=== PATIENT | female | born 1980 | race Caucasian/White ===

== ENCOUNTER → 2020-03-15 09:51 | Outpatient (CLI) | payer BC, SELFPAY ==
--- NOTE | ~2020-03-15 | US_ITS ---
EXAMINATION: US abdomen complete DATE: 03/15/2020 10:12 INDICATION: Right upper quadrant and epigastric pain TECHNIQUE: Multiple grayscale and Doppler ultrasound images of the abdomen were obtained. COMPARISON: None available FINDINGS: The head and and body of the pancreas are normal. The pancreatic tail is obscured by bowel gas. The liver is normal with normal echogenicity and echotexture. No surface nodularity. Normal hepa topetal flow in the main portal vein. The gallbladder is normal with no abnormal wall thickening, per icholecystic fluid or stones. The normal common bile duct measures 4 mm. There was no sonographic Mur phy sign. The visualized portions of the aorta are normal. The inferior vena cava is not visualized d ue to overlying bowel gas. The right kidney measures 11.5 x 5.5 x 5.3 cm. The left kidney measures 10.6 x 5 x 5.5 cm. The kidney s demonstrate normal parenchymal echogenicity. There is no hydronephrosis. The spleen is normal in ap pearance and measures 10.4 cm. IMPRESSION: 1. No sonographic correlate for the patient's symptoms. Reviewed, dictated and finalized at location A.
== END ==
PROVIDERS: PCP Internal Medicine Endocrinology, Diabetes & Metabolism; Visit Provider Internal Medicine Endocrinology, Diabetes & Metabolism
DX: R10.9 Unspecified abdominal pain (principal)
CPT/HCPCS: 76700

== ENCOUNTER 2020-04-23 01:45 | Observation (INO) | payer BC, SELFPAY ==
[2020-04-23] VITALS (13 sets, daily range): BP systolic 90–139; BP diastolic 41–66; PULSE 62–90; RESP 12–21; TEMP 36.3–37.2; O2SAT 68–100; BMI 27.8
--- NOTE | ~2020-04-23 | CT_ITS ---
EXAMINATION: CT abdomen pelvis w con EXAM DATE: 04/23/2020 03:21 INDICATION: Right lower quadrant pain. TECHNIQUE: Spiral CT of the abdomen and pelvis was performed following intravenous injection of 100 m L Omnipaque 350. Axial, coronal and sagittal images were reviewed. The dose-length product (DLP) fo r this examination was 705.65 mGy-cm. The exposure was tailored according to patient size (auto mA e xposure control), and iterative reconstruction (ASIR) was used as additional dose reduction technique . There is no prior study for comparison. FINDINGS: The liver, spleen, adrenal glands and pancreas are unremarkable. Gallbladder is unremarkab le. No biliary obstruction. Portal and splenic veins are patent. Kidneys enhance symmetrically. T here is no hydronephrosis. The uterus is unremarkable. The bladder is unremarkable. There is no retroperitoneal or pelvic lymphadenopathy. Appendix is significantly dilated, appears obstructed, fluid-filled with moderate amount of adjacent inflammation. No abscess or perforation. Acute uncomplicated appendicitis. The stomach and small bow el are unremarkable. There is expected amount of colonic stool. No free intraperitoneal gas. The heart is normal in size. There are no pericardial or pleural effusions. The lung bases are unremar kable. The bones are unremarkable. IMPRESSION: 1. Acute appendicitis. Reviewed, dictated and finalized at location A. IMPRESSION: 1. Acute appendicitis.
[2020-04-23 02:39] LABS: Basophils Percent Auto 0.3 % (0.2-1.2); Eosinophils Absolute Auto 0.2 K/mm3 (0-0.3); Eosinophils Percent Auto 1.4 % (0-4.4); Hematocrit 42.2 % (37.0-47.0); Hemoglobin 14.2 g/dL (12.0-15.0); Immature Granulocyte Absolute 0.04 K/mm3 (0.00-0.031); Immature Granulocyte Percent A 0.3 % (0-0.5); Lymphocytes Absolute Auto 2.12 K/mm3 (0.9-3.2); Lymphocytes Percent Auto 16.6 % (18.3-44.2); Mean Corpuscular HGB Conc 33.6 g/dl (32-36); Mean Corpuscular Hemoglobin 29.6 pg (26-34); Mean Corpuscular Volume 88.1 fl (80-100); Mean Platelet Volume 11.2 fl (7.4-10.4); Monocytes Absolute Auto 0.6 K/mm3 (0.1-0.6); Monocytes Percent Auto 4.8 % (2.6-8.5); Neutrophils Absolute Auto 9.8 K/mm3 (1.3-6.7); Neutrophils Percent Auto 76.6 % (45.5-73.1); Platelet Count Result 221 k/mm3 (150-375); Red Blood Count 4.79 M/mm3 (4.2-5.4); Red Cell Distribution Width 11.9 % (11.5-14.5); White Blood Count 12.8 K/mm3 (4.5-10.0)
[2020-04-23] MEDS: MORPHINE SULFATE (*CRX) 2 MG/ML INJ IV PUSH (02:39)
[2020-04-23] MEDS: ONDANSETRON INJ 4 MG/2 ML VIAL IV PUSH ×4 (02:39→15:52)
[2020-04-23 02:46] LABS: Add Urine Microscopic? YES; Appearance Urine Clear (Clear); Bacteria Urine Trace /hpf; Bilirubin Urine Negative (Negative); Blood Urine 3+ (Negative); Color Urine Straw (Yellow); Glucose Urine UA Negative (Negative); Ketones Urine Negative (Negative); Leukocyte Esterase Ur Negative LEU/UL (Negative); Mucus Urine Rare /lpf; Nitrate Urine Negative (Negative); Protein Urine Negative (Negative); RBC Urine >75 /hpf (0-2); Specific Grav Ur 1.017 (1.001-1.035); Squamous Epithelial Cell Urine Few /hpf (Few); Urobilinogen Urine Negative mg/dL (<2.0); WBC Urine 0-3 /hpf
[2020-04-23 02:54] LABS: Alanine Aminotransferase 26 U/L (4-35); Albumin Level 4.3 g/dL (3.5-5.1); Alkaline Phosphatase 97 U/L (38-126); Anion Gap 9 mmol/L (8-16); Aspartate Amino Transferase 29 U/L (14-36); Bilirubin,Total 0.5 mg/dL (0.2-1.3); Blood Urea Nitrogen 15 mg/dL (7-17); Calcium 9.6 mg/dL (8.4-10.2); Carbon Dioxide 30 mmol/L (22-30); Chloride 101 mmol/L (98-107); Estimated CRCL calculation 91 ml/min; Estimated Glomerular Filt Rate > 60; Glucose 168 mg/dL (65-105); Lipase 442 U/L (23-300); Potassium 3.9 mmol/L (3.4-5.0); Sodium 140 mmol/L (137-145)
--- NOTE | 2020-04-23 03:53 | ED.ABDPAIN ---
HPI - Abdominal Pain General Chief Complaint: Abdominal Pain Stated Complaint: abd pain Time Seen by Provider: 04/23/20 02:03 History of Present Illness HPI narrative: Patient is a 39-year-old female who presents ER with abdominal pain beginning this evening. Began upper abdomen is starting down to her lower abdomen. Is cramping in nature. Associate with diarrhea x2. No nausea or vomiting. She without fevers or chills. Denies urinary symptoms. Symptoms worse with movement. Related Data Home Medications Medication Instructions Recorded Confirmed semaglutide [Ozempic] 0.25 mg SUBCUT WEEKLY 04/23/20 04/23/20 Allergies Allergy/AdvReac Type Severity Reaction Status Date / Time No Known Allergies Allergy Unverified 04/23/20 02:20 Review of Systems Review of Systems: All systems reviewed & are unremarkable except as noted in HPI and below Constitutional: Constitutional: Denies chills, Denies fever(s) and Denies weakness ENT: Denies nasal congestion and Denies sore throat Cardiovascular: Cardiovascular: Denies chest pain and Denies radiating jaw, neck or arm pain Gastrointestinal: Gastrointestinal: Reports abdominal pain, Reports diarrhea, Denies nausea and Denies vomiting Genitourinary: Genitourinary: Denies nocturia, Denies dysuria and Denies flank pain PMFSH Family History Family History (Updated 04/23/20 @ 05:36 by Ching Campuzano RN) Sibling BRYANT (latent autoimmune diabetes in adults), managed as type 2 Father Heart attack Mother Meniere's disease Other Family history of cardiovascular disease Social History Social History Smoking packs per day: 0.5 Smoking cigarettes per day: 10.0 Years smoked: 20 Smoking pack-years: 10.00 Smoking status: Former smoker Tobacco type: cigarettes Smoking end date: 11/23/19 Alcohol intake: current Substance use: never 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 HEAD: Normocephalic, atraumatic. CHEST: Clear to auscultation. No respiratory distress. HEART: Regular rate and rhythm. Normal peripheral pulses. ABDOMEN: Soft, tender palpation right lower quadrant with guarding, nondistended. EXTREMITIES: Normal range of motion. No edema. SKIN: Warm, dry, no rash. NEURO: Alert and oriented x3. PSYCH: Normal mood and affect. Course Course Emergency Course: Discussed with surgery, will admit, zosyn ordered, pt stable. Vital Signs Vital signs: Vital Signs Temperature 97.3 F L 04/23/20 01:47 Pulse Rate 80 04/23/20 01:47 Respiratory Rate 20 04/23/20 01:47 Blood Pressure 139/44 L 04/23/20 01:47 Pulse Oximetry 98 04/23/20 01:47 Temperature 97.3 F L 04/23/20 01:47 Pulse Rate 75 04/23/20 04:57 Respiratory Rate 18 04/23/20 04:57 Blood Pressure 119/58 L 04/23/20 04:57 Pulse Oximetry 99 04/23/20 04:57 MDM - Abdominal Pain Lab Data Result diagrams: 04/23/20 02:27 04/23/20 02:27 Labs: Lab Results 04/23/20 04/23/20 04/23/20 Range/Units 02:27 02:27 02:27 WBC 12.8 H (4.5-10.0) K/mm3 RBC 4.79 (4.2-5.4) M/mm3 Hgb 14.2 (12.0-15.0) g/dL Hct 42.2 (37.0-47.0) % MCV 88.1 (80-100) fl MCH 29.6 (26-34) pg MCHC 33.6 (32-36) g/dl RDW 11.9 (11.5-14.5) % Plt Count 221 (150-375) k/mm3 MPV 11.2 H (7.4-10.4) fl Immature Gran % (Auto) 0.3 (0-0.5) % Neut % (Auto) 76.6 H (45.5-73.1) % Lymph % (Auto) 16.6 L (18.3-44.2) % [place] % (Auto) 4.8 (2.6-8.5) % Eos % (Auto) 1.4 (0-4.4) % Baso % (Auto) 0.3 (0.2-1.2) % Lymph # (Auto) 2.12 (0.9-3.2) K/mm3 [place] # (Auto) 0.6 (0.1-0.6) K/mm3 Eos # (Auto) 0.2 (0-0.3) K/mm3 Baso # (Auto) 0.0 (0.0-0.1) K/mm3 Abs Immat Gran (auto)
[2020-04-23] MEDS: MORPHINE SULFATE (*CRX) 4 MG/ML INJ IV PUSH ×4 (04:08→10:28)
--- NOTE | 2020-04-23 05:13 | ADMGEN ---
This patient, Missy Ricks, was admitted to Medical Room 261-01. Patient/family oriented to hospital policies and general routines including ID bracelet, bed and alarms, visiting hours, pain management, procedures, bathroom and other care routines, personal items, smoking policy, room service/diet, and visiting hours. Valuables list has been completed. Information on how to activate the Rapid Response Team has been discussed. Patient/Family are encouraged to report perceived risks to care and to ask questions if they do not understand what they are told or what they should do.
[2020-04-23] MEDS: SODIUM CHLORIDE 0.9% IV 1,000 ML 125 ML IV CONT ×2 (05:48→18:35)
--- NOTE | 2020-04-23 08:06 | PM.IMHP ---
H&P: HPI History of Present Illness Date/Time: 04/23/20 08:06 Chief complaint: appendicitis Narrative: Missy Rikcs is a 39 year old female who states that she began having upper mid abdominal pain last night approximately 8-9 p.m.. By 11 p.m. she was very uncomfortable and and try to lay down after taking some Pepto-Bismol. This did not seem to settle her stomach so she eventually came to the hospital. Workup in the [facility] emergency room revealed acute appendicitis with an appendicolith. (See CT scan report). Patient was started on Pipracil on IV made NPO and given IV fluids. She is willing to proceed with a laparoscopic appendectomy possible open. Review of Systems Constitutional: Constitutional: Reports no additional constitutional complaints, Reports fatigue and Denies malaise Eyes: Eyes: Denies change in vision and Denies loss of vision ENT: Reports Normal hearing present, Denies change in voice, Denies dizziness, Denies hoarseness and Denies sore throat Cardiovascular: Cardiovascular: Denies chest pain, Denies leg edema and Denies dyspnea Respiratory: Respiratory: Denies cough, Denies dyspnea and Denies wheezing Gastrointestinal: Gastrointestinal: Reports abdominal pain ( Mainly across mid abdomen radiating toward the right), Denies hematochezia, Reports change in bowel habits ( since beginning to take Trulisity she has been having bowel movement e), Denies heartburn and Reports diarrhea ( 2 loose stools last night while she was having the abdominal pain in the ) Comments: since beginning to take Trulisity she has been having bowel movement Every other day rather than every day. she had 2 loose stools last night while she was having the abdominal pain in the evening. Prior to feeling poorly last night she was not having any significant abdominal pain. Genitourinary: Genitourinary: Denies urinary frequency and Denies urinary incontinence Comments: History of occasional urinary tract infections none recently. Neurologic: Reports Normal hearing present, Denies confusion, Denies dizziness, Denies loss of vision, Denies memory loss and Denies seizure-like activity Psychiatric: Psychiatric: Denies confusion, Denies depression and Denies memory loss Endocrine: Endocrine: Denies cold intolerance and Reports other ( Known type 2 diabetes on Ozempic) Comments: patient sees an park guard and saw her recently in February. She did have some upper abdominal discomfort when she originally try toes up pick and then switched to [employer]. Tree list the did not seem to suppress her appetite as well did control her blood sugars well. Two weeks ago she started trying to switch back to low-dose Ozempic. Hematologic/Lymphatic: Hematologic/Lymphatic: Denies easy bleeding and Denies easy bruising Allergic/Immunologic: Allergic/Immunologic: Denies wheezing PMFSH Past Medical History Medical History Anxiety Psoriasis Type 2 diabetes mellitus without complication Surgical History Surgical History No history of previous surgery Family History Family History Sibling BRYANT (latent autoimmune diabetes in adults), managed as type 2 Father Heart attack Mother Meniere's disease Other Family history of cardiovascular disease Social History Social History Smoking packs per day: 0.5 Smoking cigarettes per day: 10.0 Years smoked: 20 Smoking pack-years: 10.00 Smoking status: Former smoker Tobacco type: cigarettes Smoking end date: 11/23/19 Alcohol intake: current Substance use: never 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
--- NOTE | 2020-04-23 09:55 | PC.NURSE ---
surgical SBAR faxed to preop at [phone]
--- NOTE | 2020-04-23 10:54 | WPDHPUPDATE1 ---
History and Physical Update Update Date/Time: 04/23/20 10:54 History and Physical has been reviewed, including an updated exam of the patient. There are NO changes in the patient's condition. Risks, benefits, and alternatives have been discussed and questions answered. Patient agrees to proceed with procedure.
--- NOTE | 2020-04-23 11:08 | PC.NURSE ---
pt to OR via bed, reviewed plan of care with pt and
[2020-04-23] MEDS: LACTATED RINGERS 1,000 ML 30 ML IV CONT ×3 (11:33→15:15)
[2020-04-23] MEDS: BUPIVACAINE/EPINEPHRINE 0.5% 10 ML VIAL 30 ML INFILTRATE (13:58)
[2020-04-23] MEDS: fentaNYL CITRATE INJ (*CRX) 100 MCG/2 ML VIAL 25 MCG IV PUSH ×2 (15:12→15:17)
--- NOTE | 2020-04-23 15:47 | PC.NURSE ---
pt arrived back from surgery via bed, resting comfortably, assessment as noted in flowsheet
--- NOTE | 2020-04-23 16:13 | PM.PROC ---
Procedure Note - Detailed Date of procedure: 04/23/20 Pre-op diagnosis: appendicitis Acute uncomplicated gangrenous appendicitis Post-op diagnosis: same Procedure performed: Laparoscopic Appendectomy Description of procedure: The patient was seen again in the Holding Room. The risks, benefits, complications, treatment options, and expected outcomes were discussed with the patient and/or family. The possibilities of reaction to medication, pulmonary aspiration, perforation of viscus, bleeding, recurrent infection, finding a normal appendix, the need for additional procedures, failure to diagnose a condition, and creating a complication requiring transfusion or operation were discussed. There was concurrence with the proposed plan and informed consent was obtained. The site of surgery was properly noted/marked. The patient was taken to Operating Room, and a time out was preformed which identified this as the proper patient, and the procedure verified as laparoscopic appendectomy, possible open. The patient was placed in the supine position and general anesthesia was induced, along with placement of orogastric tube, SCD hose, and a Daniel catheter. The abdomen was prepped and draped in a sterile fashion. A 5 mm umbilical incision was made and the peritoneal cavity was accessed using the Veress needle technique. Once the abdomen was insufflated to 14 mmHg pressure a 5 mm XL trocar over the 0? 5 mm scope was carefully twisted into the abdomen via the umbilicus. The pneumoperitoneum was then established to steady pressure of 14 mm Hg. A 12 mm laparoscopic port was placed through a transverse suprapubic incision under direct vision with the laparoscope. An additional 5 mm cannula was then placed in the left lower quadrant of the abdomen at a level half way between the umbilicus and pubic symphysis under direct vision. A careful evaluation of the entire abdomen was carried out no inguinal hernias were identified. The adnexal structures uterus and both ovaries along with tubes appeared to be normal. The patient was placed in Trendelenburg and left lateral decubitus position. The small intestines were retracted in the cephalad and left lateral direction away from the pelvis and right lower quadrant. The patient was found to have an enlarged and inflamed appendix that was extending into the right side of the upper pelvis. There was no evidence of perforation. The appendix was carefully dissected. Once it was free a 45 mm ethicon endogastroentestinal stapler with a vascular load was placed across the mesoappendix. This was fired and hemostasis was checked along the staple line. Because we did not staple E entire mesoappendix it appeared that there was some bleeding so I used a [place] for dissect her on Bovie cautery and grass the bleeder holding it tightly cauterized this twice. This stopped the bleeding. The suction whirley operator was used to suction away any blood that had spilled and there was estimated to be about 35 cc of loss at that time. After that hemostasis appeared to be adequate. Then another cartridge containing a vascular load applied and the stapler then placed right to the base of the appendix. This was also fired and bleeding was checked. The appendix was then divided at its base using the same 45 mm stapler with a 3.5 mm bowel wall load. Minimal appendiceal stump was left in place. There was no evidence of bleeding, leakage, or complication after division of the appendix at its junction with the cecum.. The appendix was then placed in an endobag which had been brought through the 12 mm suprapubic port site. The appendix and the bag were then extracted through this larger port site in the suprapubic position. The suprapubic port site was closed using a #1 Polysorb suture passed with a Abiodun-Roy cone and needle suture passer at the level of the fascia. The trocar site skin wounds were closed using 4-0 undyed Monocryl and surgical glue. Instrument, sponge,
[2020-04-23] MEDS: SENNA/DOCUSATE SODIUM TABLET 2 TAB PO (20:39)
[2020-04-23] MEDS: HYDROcodone/acetaminophen (*CRX) 5-325 MG TABLET 1 TAB PO (20:46)
[2020-04-24] MEDS: HYDROcodone/acetaminophen (*CRX) 5-325 MG TABLET 1 TAB PO (00:49)
[2020-04-24 01:27] VITALS: BP 103/51; PULSE 86; RESP 20; TEMP 36.1; O2SAT 99
[2020-04-24] MEDS: SODIUM CHLORIDE 0.9% IV 1,000 ML 125 ML IV CONT (02:28)
[2020-04-24 05:27] VITALS: BP 104/55; PULSE 75; RESP 20; TEMP 37.2; O2SAT 98
[2020-04-24] MEDS: HYDROcodone/acetaminophen (*CRX) 7.5-325 MG TABLET 1 TAB PO ×3 (05:40→13:36)
[2020-04-24 05:57] LABS: Mean Corpuscular HGB Conc 33.3 g/dl (32-36); Mean Corpuscular Hemoglobin 29.6 pg (26-34); Mean Corpuscular Volume 88.9 fl (80-100); Mean Platelet Volume 11.5 fl (7.4-10.4); Platelet Count Result 178 k/mm3 (150-375); Red Blood Count 3.71 M/mm3 (4.2-5.4); Red Cell Distribution Width 12.2 % (11.5-14.5); White Blood Count 11.9 K/mm3 (4.5-10.0)
[2020-04-24 06:28] LABS: Anion Gap 8 mmol/L (8-16); Blood Urea Nitrogen 9 mg/dL (7-17); Calcium 8.1 mg/dL (8.4-10.2); Carbon Dioxide 26 mmol/L (22-30); Chloride 104 mmol/L (98-107); Estimated CRCL calculation 123 ml/min; Estimated Glomerular Filt Rate > 60; Glucose 111 mg/dL (65-105); Lipase 79 U/L (23-300); Potassium 3.7 mmol/L (3.4-5.0); Sodium 138 mmol/L (137-145)
[2020-04-24 10:00] VITALS: BP 96/56; PULSE 61; RESP 14; TEMP 36.1; O2SAT 100
--- NOTE | 2020-04-24 11:01 | WPDANESPN ---
Anes - Prog Note Post-Op Date/Time: 04/24/20 11:01 Cardiovascular status: normal Respiratory status: normal Airway patency: baseline Mental status: baseline Post-Op hydration status: normal Vital Signs: Last Vital Signs Temp 36.1 C L 04/24/20 10:00 Pulse 61 04/24/20 10:00 Resp 14 04/24/20 10:00 BP 96/56 L 04/24/20 10:00 Pulse Ox 100 04/24/20 10:00 Pain Score (VAS): 0 I/O: Intake & Output 04/23/20 04/24/20 04/24/20 23:59 07:59 15:59 Intake Total 1000 1540 240 Output Total 800 Balance 1000 740 240 Laboratory Tests 04/24/20 05:32 04/24/20 05:32 04/24/20 04/24/20 05:32 05:32 WBC 11.9 H RBC 3.71 L Hgb 11.0 L D Hct 33.0 L MCV 88.9 MCH 29.6 MCHC 33.3 RDW 12.2 Plt Count 178 MPV 11.5 H Sodium 138 Potassium 3.7 Chloride 104 Carbon Dioxide 26 Anion Gap 8 BUN 9 D Creatinine 0.50 L Estim Creat Clear Calc 123 Estimated GFR > 60 Glucose 111 H Calcium 8.1 L Lipase 79 Post-procedural complaints: none Patient Feedback: Patient satisfied with anesthetic care.
--- NOTE | 2020-04-24 12:48 | PM.DS ---
DS: Admitting Diagnosis Admitting Diagnosis Admitting Diagnosis: Acute uncomplicated appendicitis 2. non insulin-dependent diabetes mellitus 3. overweight status BMI 28 DS: Discharge Diagnosis Discharge Diagnosis (1) Type 2 diabetes mellitus without complication: Onset Date: ~2018 Qualifiers: Diabetes mellitus terminal operator insulin use: without fdc use Qualified Code(s): E11.9 - Type 2 diabetes mellitus without complications Code(s): E11.9 - Type 2 diabetes mellitus without complications Status: Acute Assessment and Plan: patient will resume her was then pick at home. She will follow her blood sugars as needed. She will call her under radiology physician if there are any problems with her diabetes in the (2) Acute appendicitis: Onset Date: ~04/23/20 Code(s): K35.80 - Unspecified acute appendicitis Status: Acute Assessment and Plan: patient had an appendectomy yesterday. White blood cell count has come down appropriately. She has not required any more antibiotics. Pain is controlled with oral pain medications at this time and patient is tolerating a diet. She knows she should take a laxative if she has not have a bowel movement by tomorrow evening. (3) BMI 28.0-28.9,adult: Onset Date: Unknown Code(s): Z68.28 - Body mass index [BMI] 28.0-28.9, adult Status: Acute Assessment and Plan: Courage patient to follow a low-fat diabetic diet and keep it saw for the 1st few days once going home. DS: Summary Hospital Course Reason for hospitalization: Acute uncomplicated appendicitis Hospital Course: patient had uneventful hospital course. She was admitted [facility] upon the day of presentation. IV antibiotics were started. Surgical intervention was recommended. She underwent a fairly uneventful laparoscopic appendectomy. She was complain of slight burning with urination on the morning of discharge however, she had a Daniel catheter placed the time of surgery so I suspect that this will resolve. She knows if it does not she will need to have a urinalysis and we will order it upon discharge or it if she calls the next few days. Status at Discharge Cognitive/behavioral status at discharge: Back to normal baseline Functional status at discharge: independent ambulation Overall status at discharge: patient is not back to baseline ( still is moving slowly secondary to incisional pain.) Time Spent with Patient Time attestation: Total time spent providing and/or coordinating discharge services: Time spent: Less than 30 minutes Exam Const: General: cooperative, no acute distress, alert and awake Orientation/consciousness: patient oriented x3 HENMT: Mouth: Yes moist mucous membranes Neck: Neck: normal visual inspection Chest: Chest palpation & inspection: normal inspection of the chest Resp: Effort & Inspection: normal respiratory effort Auscultation: clear to auscultation bilaterally Cardio: Jugular venous distension: no JVD Rate: regular rate Rhythm: regular rhythm GI: Inspection: obesity GI Palp: Yes abdominal tenderness ( mild near incisions), Yes Soft to palpation and Yes Other GI palpation findings present ( incisions clean and dry without significant erythema) Auscultation: normal bowel sounds Rectal Exam: deferred Neuro: General: patient oriented x3 and moves all extremities Speech: normal speech Extrem: General: normal exam except as noted Psych: Mental Status: mental status grossly normal Speech and movement: Normal speech and movement present Affect: normal affect Thought content: Yes Normal thought content present DS: Data Data Completed and Pending Pending studies at discharge: Pending at discharge 04/23/20 13:55 Surgical [PTH] Routine Labs on day of discharge: Labs from last 24 hours 04/24/20 04/24/20 05:32 05:32 WBC 11.9 H RBC 3.71 L Hgb 11.0 L D Hct 33.0 L MCV 88.9 MCH 29.6 MCH
== END 2020-04-24 14:50 | disposition home or self-care (01) ==
LOC: ANHED 04:07 → ANH2MED 05:01
PROVIDERS: Admitting Provider Surgery; Emergency Provider Emergency Medicine; PCP Internal Medicine Endocrinology, Diabetes & Metabolism; Visit Provider Surgery
PROC: 0DTJ4ZZ Resection of Appendix, Percutaneous Endoscopic Approach (ICD-10-PCS; CPT 44970; principal; 2020-04-23 12:00)
DX: K35.30 Acute appendicitis with localized peritonitis, without perforation or gangrene (principal); Z87.891 Personal history of nicotine dependence; E11.9 Type 2 diabetes mellitus without complications
CPT/HCPCS: 44970; 36415; 74177; 80048; 80053; 81001; 81025; 83690; 85025; 85027; 88304; 96361; 96365; 96375; 96376; 99285; A9270; G0378; J0131; J0330; J1100; J1170; J2250; J2270; J2370; J2405; J2543; J2704; J2710; J3010; J7030; J7120; Q9967

== ENCOUNTER → 2022-06-02 08:31 | Outpatient (CLI) | payer BC, SELFPAY ==
--- NOTE | ~2022-06-02 | US_ITS ---
EXAMINATION: US abdomen limited DATE: 06/02/2022 08:53 INDICATION: Right upper quadrant pain TECHNIQUE: Multiple grayscale and Doppler ultrasound images of the abdomen were obtained. COMPARISON: 03/15/2020 FINDINGS: The head and body of the pancreas are normal. The pancreatic tail is obscured by bowel gas. The liver is normal with normal echogenicity and echotexture. No surface nodularity. Normal hepatope pretty flow in the main portal vein. A stone is present in the nondistended gallbladder. There is no gal lbladder wall thickening or pericholecystic fluid. The normal common bile duct measures 4 mm. There w as no sonographic Beltrán sign. IMPRESSION: 1. Cholelithiasis without evidence of cholecystitis. Reviewed, dictated and finalized at location B. KBOOKS BOOKKEEPER
== END ==
LOC: EXPGOSH 08:33 → EXPGOSHRAD 08:37
PROVIDERS: PCP Physician Assistant; Visit Provider Nurse Practitioner Family
DX: R10.11 Right upper quadrant pain (principal); K80.20 Calculus of gallbladder without cholecystitis without obstruction
CPT/HCPCS: 76705

== ENCOUNTER 2022-06-02 08:48 | Outpatient (CLI) | payer BC, SELFPAY ==
[2022-06-02 19:05] LABS: Alanine Aminotransferase 32 U/L (6-35); Albumin Level 4.3 g/dL (3.5-5.1); Alkaline Phosphatase 95 U/L (38-126); Anion Gap 9 mmol/L (8-16); Aspartate Amino Transferase 34 U/L (14-36); Bilirubin,Total 0.5 mg/dL (0.2-1.3); Blood Urea Nitrogen 15 mg/dL (7-17); Calcium 8.7 mg/dL (8.4-10.2); Carbon Dioxide 24 mmol/L (22-30); Chloride 105 mmol/L (98-107); Cholesterol 199 mg/dL (0-200); Estimated Glomerular Filt Rate > 60; Glucose 114 mg/dL (65-110); HDL Direct 61 mg/dL; Potassium 4.6 mmol/L (3.4-5.0); Sodium 138 mmol/L (137-145); Triglycerides 61 mg/dL (<150)
[2022-06-02 19:17] LABS: LDL Cholesterol Direct 110 mg/dL
[2022-06-02 19:27] LABS: Free T4 Free Thyroxine 0.96 ng/mL (0.78-2.19); Vitamin D 25 Hydroxy 39.1 ng/mL
[2022-06-02 19:29] LABS: Microalbumin Urine Random 7.9 mg/L (0-16.7)
[2022-06-02 19:31] LABS: Creatinine Urine 203.5 mg/dL; MALB Creatinine Ratio 3.9 mg/g (0-30)
[2022-06-02 19:35] LABS: Thyroid Stimulating Hormone 0.803 uIU/mL (0.465-4.680)
== END 2022-06-02 08:49 | disposition home or self-care (01) ==
LOC: ANHGOSHLAB 08:50
PROVIDERS: PCP Physician Assistant; Visit Provider Nurse Practitioner Family
DX: E11.9 Type 2 diabetes mellitus without complications (principal); Z78.9 Other specified health status
CPT/HCPCS: 36415; 80053; 80061; 82043; 82306; 82607; 84439; 84443

== ENCOUNTER 2022-07-28 14:06 | Outpatient (CLI) | payer BC, SELFPAY ==
[2022-07-28 18:23] LABS: Alanine Aminotransferase 33 U/L (6-35); Albumin Level 3.9 g/dL (3.5-5.1); Alkaline Phosphatase 78 U/L (38-126); Anion Gap 4 mmol/L (8-16); Aspartate Amino Transferase 38 U/L (14-36); Bilirubin,Total 0.2 mg/dL (0.2-1.3); Blood Urea Nitrogen 13 mg/dL (7-17); Calcium 8.9 mg/dL (8.4-10.2); Carbon Dioxide 30 mmol/L (22-30); Chloride 102 mmol/L (98-107); Estimated Glomerular Filt Rate > 60; Glucose 149 mg/dL (65-110); Lipase 156 U/L (23-300); Potassium 4.2 mmol/L (3.4-5.0); Sodium 136 mmol/L (137-145)
[2022-07-28 19:45] LABS: Basophils Absolute Auto 0.1 K/mm3 (0.0-0.1); Basophils Percent Auto 0.6 % (0.2-1.2); Eosinophils Absolute Auto 0.3 K/mm3 (0-0.3); Eosinophils Percent Auto 3.6 % (0-4.4); Hematocrit 38.6 % (37.0-47.0); Hemoglobin 12.5 g/dL (12.0-15.0); Immature Granulocyte Absolute 0.02 K/mm3 (0.00-0.031); Immature Granulocyte Percent A 0.3 % (0-0.5); Lymphocytes Absolute Auto 1.73 K/mm3 (0.9-3.2); Lymphocytes Percent Auto 22.4 % (18.3-44.2); Mean Corpuscular HGB Conc 32.4 g/dl (32-36); Mean Corpuscular Hemoglobin 28.8 pg (26-34); Mean Corpuscular Volume 88.9 fl (80-100); Mean Platelet Volume 11.6 fl (7.4-10.4); Monocytes Absolute Auto 0.5 K/mm3 (0.1-0.6); Monocytes Percent Auto 6.7 % (2.6-8.5); Neutrophils Absolute Auto 5.1 K/mm3 (1.3-6.7); Neutrophils Percent Auto 66.4 % (45.5-73.1); Platelet Count Result 231 k/mm3 (150-375); Red Blood Count 4.34 M/mm3 (4.2-5.4); Red Cell Distribution Width 12.8 % (11.5-14.5); White Blood Count 7.7 K/mm3 (4.5-10.0)
== END 2022-07-28 14:07 | disposition home or self-care (01) ==
LOC: ANHGOSHLAB 14:08
PROVIDERS: PCP Physician Assistant; Visit Provider Physician Assistant
DX: E03.9 Hypothyroidism, unspecified (principal)
CPT/HCPCS: 36415; 80053; 83690; 85025

== ENCOUNTER → 2023-04-29 12:09 | Outpatient (CLI) | payer BC, SELFPAY ==
--- NOTE | ~2023-04-29 | MM_ITS ---
EXAMINATION: MM screening vi BI w kurt HISTORY: Screening mammogram TECHNIQUE: Craniocaudal and mediolateral oblique 3-D tomosynthesis images were obtained and synthetic 2-D images were generated. CAD analysis was submitted and interpreted. COMPARISON: No prior mammogram is available for comparison at this institution. BREAST PARENCHYMAL COMPOSITION: The breasts are almost entirely fatty. FINDINGS: No suspicious mass, calcification, or architectural distortion are identified in either cortez ast to suggest malignancy. IMPRESSION: 1. No mammographic evidence of malignancy. 2. Recommend routine screening mammography in one year. BI-RADS Category 1: Negative Reviewed, dictated and finalized at location A.
== END ==
PROVIDERS: PCP Obstetrics & Gynecology; Visit Provider Physician Assistant
DX: Z12.31 Encounter for screening mammogram for malignant neoplasm of breast (principal)
CPT/HCPCS: 77063; 77067